=== PATIENT | female | born 1955 | race Caucasian/White ===

== ENCOUNTER → 2016-07-29 | Outpatient (CLI) | payer MEDICARE, OTHER ==
[~2016-07-29] MED LIST: ADVAIR 250-501 EAC1; ADVAIR 5001 DISK W/D PO; ANEXSIA 7.5/3251 TA1 PO; ASMANEX; ASTHMANEX INH; B-121000 MC1 PO; COMBIVENT RESPIM4 GM INH; DICYCLOMINE HCL10 MG PO; ERY-TAB500 MG PO; ESCITALOPRAM OX10 MG PO; FLONASE 0.05% N16 G1; FLUTICASONE; FOSAMAX70 MG PO; HYDROCODON-ACE1 EAC5 PO; IBUPROFEN PO; KENALOG IN ORABA5 GM TOP; LORTAB 10/500 T1 TAB PO; LORTAB 7.5-5001 TAB; LOTRONEX1 MG PO; LYRICA PO; MEDROL4 MG/DOSE- PO; MULTI VITAMIN1 EACH PO; NEURONTIN100 MG PO; OLANZAPINE5 MG PO; OMEPRAZOLE40 M1 PO; OXYCODON-ACETA1 EAC1 PO; PREMARIN PO; PREVACID PO; PRILOSEC20 M1 PO; SKELAXIN PO; TRAZODONE HCL100 MG; TRAZODONE HCL150 MG PO; TRAZODONE PO; ULTRACET TABLET1 TAB PO; ULTRAM PO; VICODIN ES 7.51 EAC1 PO; VITAMIN B 12 PO; VITAMINS PO; VOLTAREN75 MG PO; ZANAFLEX4 M1 PO; ZENPEP DR 3,001 EACH; ZITHROMAX1 G/PKT PO
--- NOTE | ~2016-07-29 | CT2 ---
[facility] A Service of [facility] RADIOLOGY TEXT RESULTS PATIENT: KALPANA MENDOZA LOCATION: [facility] : 59 UNIT #: [id number] AGE: [address]: Amando Burton MD SEX: F ORDER DR: [id number] [facility] [address] [facility]. [place], [place] [address] [id number] O MR#: [id number] Acc #: [id number] NAME: KALPANA MENDOZA : 1955 SEX: F STUDY DATE/TIME: 07/29/2016 14:14 UNIT: [facility] ROOM: STUDY DESCRIPTION: CT Abd and Pelv W Cont Attending Physician: Amando Burton M.D. Referring Physician: Amando Bruton M.D. Ordering Physician: Amando Burton M.D. Primary Care Physician: Jose Carlos Moses M.D. MEDICAL IMAGING REPORT This report is preliminary unless electronic signature is present EXAM CT abdomen and pelvis INDICATIONS Abdominal pain and diarrhea. Intermittent pain for [address] of the abdomen and pelvis with p.o. and IV contrast. Coronal and sagittal reconstructions were obtained. This CT exam was performed with one or more of the following radiation dose reduction techniques: automatic control, adjustment of mA and/or kV according to patient size, and iterative reconstruction. COMPARISON CT abdomen dated 09/03/2014. FINDINGS ABDOMEN: No focal lesions are identified in the solid abdominal organs. Gallbladder is surgically absent. No intrahepatic or extrahepatic biliary dilatation. There is a prior Georgina fundoplication. The bowel is not dilated. No enlarged retroperitoneal or mesenteric lymph nodes. The appendix is normal. The abdominal aorta is normal in caliber. PELVIS: There is a small volume of free pelvic fluid. Left ovary is normal. Uterus is surgically absent. The right ovary is not identified and may be surgically absent or atrophic. No acute osseous abnormalities. There has been prior fusion across the sacroiliac joints as well as L3-S1 fusion. [facility] A Service of [facility] RADIOLOGY TEXT RESULTS PATIENT: KALPANA MENDOZA LOCATION: [facility] : 59 UNIT #: [id number] AGE: [address]: Amando Burton MD SEX: F ORDER DR: IMPRESSION 1. No acute findings in the abdomen or pelvis to account for the patient's symptoms. Dictated by... Harpreet Dillon M.D. THIS IS AN ELECTRONICALLY VERIFIED REPORT Harpreet Dillon M.D. at 07/30/2016 8:30 AM RPDre/salvatore TD: 07/29/2016 16:47 JOB #: [id number] MEDICAL IMAGING REPORT Page 1 of 1 COPY
[2016-07-29 12:34] LABS: HEMATOCRIT 38.5 % (35.0-45.0); HEMOGLOBIN 12.9 gm/dL (12.0-16.0); MEAN CELL VOLUME 92.3 FL (83-96); MEAN CORPUSCULAR HEMOGLOBIN 30.8 PG (28-34); MEAN CORPUSCULAR HGB CONC 33.4 g/dL (30-36); MEAN PLATELET VOLUME 8.9 FL (6.5-11.5); RED BLOOD COUNT 4.18 X10e (3.90-5.30); RED CELL DISTRIBUTION WIDTH 13.4 % (11.0-15.5); WHITE BLOOD COUNT 6.8 X10e3 (4.0-10.5)
[2016-07-29 13:17] LABS: ALBUMIN SERUM 3.9 g/dL (3.5-5.0); BILIRUBIN,TOTAL 0.5 mg/dL (0.2-2.0); CALCIUM SERUM 8.5 mg/dL (8.4-10.2); CREATININE SERUM 0.6 mg/dL (0.6-1.4); GLOM FILT RATE Estimated 99.8 mL/min (>60); POTASSIUM 4.2 mmol/L (3.5-5.1); PROTEIN TOTAL SERUM 6.2 g/dL (6.0-8.3)
== END | disposition home or self-care (01) ==
LOC: CCAT 11:11
PROVIDERS: Internal Medicine
DX: R10.13 Epigastric pain (principal); K29.70 Gastritis, unspecified, without bleeding; K58.9 Irritable bowel syndrome, unspecified
CPT/HCPCS: 36415; 74177; 80053; 82150; 83690; 85027; Q9967

== ENCOUNTER → 2016-08-26 | Outpatient (CLI) | payer MEDICARE, OTHER ==
[2016-08-26 09:27] LABS: URINE APPEARANCE CLEAR; URINE BILIRUBIN NEG (NEG); URINE BLOOD NEG (NEG); URINE COLOR YELLOW; URINE GLUCOSE NEG (NEG); URINE KETONE NEG (NEG); URINE LEUKOCYTE ESTERASE TRACE (NEG); URINE NITRATE NEG (NEG); URINE PROTEIN NEG (NEG); URINE SPECIFIC GRAVITY 1.015 (1.003-1.035)
[2016-08-26 09:28] LABS: HEMATOCRIT 40.2 % (35.0-45.0); HEMOGLOBIN 13.3 gm/dL (12.0-16.0); MEAN CELL VOLUME 93.2 FL (83-96); MEAN CORPUSCULAR HEMOGLOBIN 30.7 PG (28-34); MEAN PLATELET VOLUME 8.6 FL (6.5-11.5); RED BLOOD COUNT 4.32 X10e (3.90-5.30); RED CELL DISTRIBUTION WIDTH 13.9 % (11.0-15.5); WHITE BLOOD COUNT 5.6 X10e3 (4.0-10.5)
[2016-08-26 09:29] LABS: URBCS1 AUWI 0-2 /[HPF] (0-2); URINE BACTERIA AUWI NEG (NEGATIVE); URINE SQUAMOUS EPITHELIAL CELL NONE SEEN /[HPF]
[2016-08-26 09:30] LABS: CULTURE INDICATED? NO
[2016-08-26 10:36] LABS: ALBUMIN SERUM 4.2 g/dL (3.5-5.0); BILIRUBIN,TOTAL 0.4 mg/dL (0.2-2.0); BUN/CREATININE RATIO 11.42; CALCIUM SERUM 8.9 mg/dL (8.4-10.2); CREATININE SERUM 0.7 mg/dL (0.6-1.4); GLOM FILT RATE Estimated 94.8 mL/min (>60); POTASSIUM 4.2 mmol/L (3.5-5.1); PROTEIN TOTAL SERUM 6.8 g/dL (6.0-8.3)
== END | disposition home or self-care (01) ==
LOC: CAMB 08:53 → EDSTATUS 09:00
PROVIDERS: Orthopaedic Surgery
DX: Z01.812 Encounter for preprocedural laboratory examination (principal); M19.012 Primary osteoarthritis, left shoulder; J44.9 Chronic obstructive pulmonary disease, unspecified
CPT/HCPCS: 36415; 80053; 81003; 85027; 87070

== ENCOUNTER 2016-09-04 05:22 | Inpatient (IN) | payer MEDICARE, OTHER ==
--- NOTE | ~2016-09-04 | OR ---
Unit #: [id number] #: [id number] Patient: KALPANA MENDOZA [id number] [address] [address] [id number] MR#: [id number] NAME: KALPANA MENDOZA ROOM: 461 Date of Procedure: 09/04/2016 Admission Date: 09/04/2016 Surgeon: Orlin Mena M.D. : 1955 Attending Physician: Orlin Mena M.D. Primary Care Physician: Jose Carlos Moses M.D. PROCEDURE OPERATIVE NOTE REVISED REPORT PREOPERATIVE DIAGNOSIS Left shoulder osteoarthritis. POSTOPERATIVE DIAGNOSIS Left shoulder osteoarthritis. PROCEDURES PERFORMED 1. Total shoulder arthroplasty, left shoulder. 2. Biceps tenodesis, left shoulder. ANESTHESIA General with interscalene block. IMPLANTS USED 1. Arthrex Buckner stem, #6. 2. Arthrex 44 x 17 mm head. 3. Small VaultLock glenoid. [employer] Tor[employer]. DESCRIPTION OF PROCEDURE After obtaining informed consent, she was taken to the operating room and placed in the supine position. After adequate induction of general anesthesia, she was prepped and draped in a sterile fashion. Standard anterior incision was made centered over the coracoid and extending distally at the end near the insertion of the deltoid. The subcutaneous tissue was developed into flaps. The cephalic vein was identified in the deltopectoral groove using scissors. This exposed the clavipectoral fascia. The clavipectoral fascia was divided just lateral to the conjoined tendon exposing the anterior aspect of the glenohumeral joint. Self-retaining retractors were placed. There was very significant scarring in the subacromial bursa from previous surgery. This was cleared using a retractor and digital dissection. The biceps tendon was identified in the groove and inspected. It was frayed and partially torn deep in the groove. It was, therefore, tenodesed at the biceps tendon and resected using scissors. It was followed into the joint by opening the rotator interval identifying the superior border of the subscapularis. The subscapularis was peeled from the anterior humerus using a knife and Unit #: [id number] #: [id number] Patient: KALPANA MENDOZA. The anterior humeral circumflex artery and veins were cauterized. It was then tagged. She had very redundant capsule, which was resected anteriorly and inferiorly off the humerus. This was released back to the posterior-inferior corner of the humerus. This delivered the humerus into the wound. A retractor was placed across the joint to do an inferior capsular release from the glenoid. The humerus was externally rotated and delivered exposing the head. The head was centrally worn down to bone. A freehand cut was made. The head measured 44 x 18. It was set aside for bone graft. A starting reamer was placed into the canal just lateral to the biceps groove staying as superior as possible. A 6-mm reamer was also used, then a 5- and 6-mm broach. The 6-mm broach was tight. Therefore, it was decided we would go with #6 mm stem. A protector was placed and the humerus was delivered back into the wound. Retractors were placed around the glenoid and the capsule was released. From the glenoid, the labrum was released. The 5D guide from Arthrex was placed onto the face of the glenoid and a guide pin was placed. It was then reamed. The central peg was then overdrilled with a 6.5 drill. The guide for the superior peg and inferior keg was then placed and drilled. The punch was then used to complete preparation of the glenoid. Trial was placed and it was found to seat perfectly according to the preoperative plan. It was thoroughly washed. Bone graft was then removed from the humeral head using a reamer and packed into the central peg of the glenoid component. Cement was placed on the superior peg and the inferior keg. It was then pressurized 3 times into the superior and inferior holes. After thoroughly washing and drying the glenoid, the holes were then packed with cement after the third pressurization and the glenoid component was impacted in place. After the cement dried, it was thoroughly irrigated with antibiotic-containing solution, and the humerus was again delivered anteriorly. The Buckner stem was then placed into the humerus after placing 6 sutures through the implant for subscapularis repair. It was impacted in place. Screws were tightened inferiorly and superiorly to lock the version and inclination. The 44 x 17 trial was used and was found to be adequate. There was 50% translation posteriorly and inferiorly. She could internally rotate to 70 degrees with 90 degrees of abduction. She could externally rotate to 60 degrees in adduction. The wound again was copiously irrigated. The sutures that were around the neck of the stem were then and the final head was impacted in place. Again, a reduction was done and the components were found to be in excellent position and stability was good. It was copiously irrigated once more and the subscapularis was repaired using the Arthrex subscapularis repair technique with bypassing all 8 of the tags through the subscapularis and then tying them in a double-row fashion. The wound was further irrigated one last time. The deltopectoral interval was closed with 0 Vicryl sutures. The skin was closed with 3-0 and 2-0 Vicryl sutures. She tolerated the procedure well and was sent to recovery room, stable. *FACILITY MODIFIED. Dictated by... Felicia Villalobos/steffi TD: 09/05/2016 00:01 JOB #: [id number] Unit #: [id number] #: [id number] Patient: KALPANA MENDOZA PROCEDURE OPERATIVE NOTE Page 1 of 1 X Arsalan Mena MD X PROCEDURE OPERATIVE NOTE
--- NOTE | ~2016-09-04 | DS ---
Unit #: [id number] #: [id number] Patient: KALPANA MENDOZA [id number] [address] [address] [id number] I MR#: [id number] NAME: KALPANA MENDOZA. ROOM: 461 Age: 61 Sex: F Admission Date: 09/04/2016 : 1955 Discharge Date: 09/05/2016 Attending Physician: Orlin Mena M.D. Primary Care Physician: Jose Carlos Moses M.D. DISCHARGE SUMMARY ADMISSION DIAGNOSIS Osteoarthritis of left shoulder. DISCHARGE DIAGNOSIS Osteoarthritis of left shoulder. PROCEDURES PERFORMED On 09/04/2016, anatomic total shoulder arthroplasty. HISTORY OF PRESENT ILLNESS The patient is a 61-year-old, who presented to the office with osteoarthritis of the shoulder. She failed conservative treatment, and was scheduled for a total shoulder arthroplasty on 09/04/2016. HOSPITAL COURSE The patient was admitted on 09/04/2016, and underwent an anatomic total shoulder arthroplasty. She was given a dose of tranexamic acid prior to incision. She got her second dose at 06:00 pm postoperatively. She has done well over her hospital course. Her hemoglobin dropped from 13.3 to 10.7, she has remained afebrile. On the day of discharge, on 09/05/2016, she is grossly neurologically intact. Again, her hemoglobin is 10.7, she has remained afebrile, and was tolerating oral pain medications. She says she is comfortable. She will be scheduled to come into the office in two days for a dressing change and an x-ray. I did give the patient my cell number for any issues. I will see her in the office on Wednesday. She is being discharged home. Dictated by... Orlin Mena M.D. BHARAT/steffi TD: 09/05/2016 11:24 JOB #: [id number] Unit #: [id number] #: [id number] Patient: KALPANA MENDOZA DISCHARGE SUMMARY Page 1 of 1 X Arsalan Mena MD DISCHARGE SUMMARY
[~2016-09-04 05:22] MED LIST changes: -ADVAIR 250-501 EAC1; -COMBIVENT RESPIM4 GM INH; -DICYCLOMINE HCL10 MG PO; -ESCITALOPRAM OX10 MG PO; -FLONASE 0.05% N16 G1; -FOSAMAX70 MG PO; -LOTRONEX1 MG PO; -OLANZAPINE5 MG PO; -OMEPRAZOLE40 M1 PO; -OXYCODON-ACETA1 EAC1 PO; -TRAZODONE HCL100 MG; -VICODIN ES 7.51 EAC1 PO; -VOLTAREN75 MG PO; -ZANAFLEX4 M1 PO; -ZENPEP DR 3,001 EACH
[2016-09-04] MEDS ORDERED: OLANZAPINE5 MG PO (08:46)
[2016-09-04] MEDS ORDERED: ESCITALOPRAM OX10 MG PO (08:47)
[2016-09-04] MEDS ORDERED: LOTRONEX1 MG PO (08:47)
[2016-09-04] MEDS ORDERED: ADVAIR 250-501 EAC1 (08:48)
[2016-09-04] MEDS ORDERED: DICYCLOMINE HCL10 MG PO (08:49)
[2016-09-04] MEDS ORDERED: TRAZODONE HCL100 MG (09:23)
[2016-09-04] MEDS ORDERED: OMEPRAZOLE40 M1 PO (09:24)
[2016-09-04] MEDS ORDERED: ZANAFLEX4 M1 PO (09:27)
[2016-09-04] MEDS ORDERED: VOLTAREN75 MG PO (09:27)
[2016-09-04] MEDS ORDERED: COMBIVENT RESPIM4 GM INH (09:28)
[2016-09-04] MEDS ORDERED: FOSAMAX70 MG PO (09:28)
[2016-09-04] MEDS ORDERED: ZENPEP DR 3,001 EACH (09:30)
[2016-09-04] MEDS ORDERED: FLONASE 0.05% N16 G1 (10:29)
[2016-09-04] MEDS ORDERED: VICODIN ES 7.51 EAC1 PO (11:46)
[2016-09-04 13:35] LABS: HEMATOCRIT 35.4 % (35.0-45.0); HEMOGLOBIN 11.7 gm/dL (12.0-16.0)
[2016-09-05 03:28] LABS: HEMOGLOBIN 10.7 gm/dL (12.0-16.0); MEAN CORPUSCULAR HEMOGLOBIN 31.4 PG (28-34); MEAN CORPUSCULAR HGB CONC 33.4 g/dL (30-36); MEAN PLATELET VOLUME 9.1 FL (6.5-11.5); RED BLOOD COUNT 3.41 X10e (3.90-5.30); RED CELL DISTRIBUTION WIDTH 13.9 % (11.0-15.5); WHITE BLOOD COUNT 5.6 X10e3 (4.0-10.5)
[2016-09-05] MEDS ORDERED: OXYCODON-ACETA1 EAC1 PO (08:50)
== END 2016-09-05 09:35 | disposition home health service (06) | DRG 483 ==
LOC: CSUR 05:22 → CPACUOF 10:14 → C4C 11:45 → CPACUOF 11:45 → C4C 09-05 09:35
PROVIDERS: Orthopaedic Surgery
PROC: 0RRK0JZ Replacement of Left Shoulder Joint with Synthetic Substitute, Open Approach (ICD-10-PCS; principal; 2016-09-04 07:30)
DX: M19.012 Primary osteoarthritis, left shoulder (principal); I08.1 Rheumatic disorders of both mitral and tricuspid valves; K21.9 Gastro-esophageal reflux disease without esophagitis; K58.9 Irritable bowel syndrome, unspecified; F17.210 Nicotine dependence, cigarettes, uncomplicated; J44.9 Chronic obstructive pulmonary disease, unspecified; Z88.0 Allergy status to penicillin; Z88.5 Allergy status to narcotic agent
CPT/HCPCS: 85014; 85018; 85027; 94640; 94664; 94760; 94761; 97110; 97161; C1713; C1776; J0330; J1170; J1885; J2250; J2405; J2710; J3010; J3370

== ENCOUNTER → 2016-12-16 | Outpatient (CLI) | payer MEDICARE, OTHER ==
[~2016-12-16] MED LIST changes: +ADVAIR 250-501 EAC1; +COMBIVENT RESPIM4 GM INH; +DICYCLOMINE HCL10 MG PO; +ESCITALOPRAM OX10 MG PO; +FLONASE 0.05% N16 G1; +FOSAMAX70 MG PO; +LOTRONEX1 MG PO; +OLANZAPINE5 MG PO; +OMEPRAZOLE40 M1 PO; +OXYCODON-ACETA1 EAC1 PO; +TRAZODONE HCL100 MG; +VICODIN ES 7.51 EAC1 PO; +VOLTAREN75 MG PO; +ZANAFLEX4 M1 PO; +ZENPEP DR 3,001 EACH
[2016-12-16 13:43] LABS: HEMATOCRIT 35.2 % (35.0-45.0); MEAN CELL VOLUME 89.5 FL (83-96); MEAN CORPUSCULAR HEMOGLOBIN 30.5 PG (28-34); MEAN PLATELET VOLUME 8.5 FL (6.5-11.5); RED BLOOD COUNT 3.93 X10e (3.90-5.30); RED CELL DISTRIBUTION WIDTH 14.5 % (11.0-15.5); WHITE BLOOD COUNT 6.2 X10e3 (4.0-10.5)
[2016-12-16 14:30] LABS: FERRITIN 8 ng/mL (11-307)
[2016-12-16 16:05] LABS: ALBUMIN SERUM 4.1 g/dL (3.5-5.0); BILIRUBIN,TOTAL 0.5 mg/dL (0.2-2.0); CALCIUM SERUM 8.5 mg/dL (8.4-10.2); CREATININE SERUM 0.5 mg/dL (0.6-1.4); POTASSIUM 4.1 mmol/L (3.5-5.1); PROTEIN TOTAL SERUM 6.5 g/dL (6.0-8.3)
[2016-12-20 22:11] LABS: GLIADIN IGA AB 7 Units (<20); GLIADIN IGG AB 4 Units (<20); RETICULIN IGA SCREEN W/REFLEX Negative (Negative); TISSUE TRANSGLUTAMINASE IGA AB 1 U/mL (<4)
== END | disposition home or self-care (01) ==
LOC: CLAB 13:02
PROVIDERS: Internal Medicine
DX: R19.7 Diarrhea, unspecified (principal); K90.49 Malabsorption due to intolerance, not elsewhere classified; R10.9 Unspecified abdominal pain
CPT/HCPCS: 36415; 80053; 82607; 82728; 82746; 83516; 83540; 84466; 85027; 86255

== ENCOUNTER → 2016-12-28 | Outpatient (CLI) | payer MEDICARE, OTHER | END | disposition home or self-care (01) | LOC: CLAB 11:55 | DX: K85.90 Acute pancreatitis without necrosis or infection, unspecified (principal); R19.7 Diarrhea, unspecified | CPT/HCPCS: 82274; 82705; 87045; 87427; 87493; 87899 ==